=== PATIENT | female | born 1995 | race Caucasian/White ===

== ENCOUNTER 2016-06-11 10:35 | Observation (INO) | payer OTHER ==
--- NOTE | ~2016-06-11 | HP ---
Unit #: [id number] #: [id number] Patient: JOSEPH SALAS [id number] [address] [place], [place] [address] [id number] E MR#: [id number] NAME: JOSEPH SALAS ROOM: Age: 20 Sex: F Admission Date: 06/11/2016 : 1995 Attending Physician: Gene Campbell D.O. Primary Care Physician: No Primary Care Physician HISTORY AND PHYSICAL CHIEF COMPLAINT Chest pain. HISTORY OF PRESENT ILLNESS The patient is a 20-year-old female with no significant past medical history, who presented to the emergency department for evaluation of the above. The patient states that she started having chest pain yesterday. She states that the pain is in the mid chest. She describes it as "sharp." It is intermittent in nature. It is exacerbated by breathing. There are no alleviating factors. She denies any similar pain. She denies shortness of breath. She has not had any cough or fever. She states that she is currently menstruating. She has had some lower abdominal cramping in association with menses. She has also had nausea. No vomiting or diarrhea. In the emergency department initial pulse and blood pressure were 88 and 113/72 respectively. Hemoglobin is 5.7. Hemoccult was negative. She is being admitted to [facility] for evaluation and further treatment. PAST MEDICAL HISTORY None. PAST SURGICAL HISTORY None. SOCIAL HISTORY The patient lives with her parents. She denies tobacco or alcohol use. 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 FAMILY HISTORY Notable for both parents being healthy. ALLERGIES No known drug allergies. HOME MEDICATIONS None. REVIEW OF SYSTEMS A complete review of systems is negative except as indicated in the history of present illness. The patient states that she is sexually Unit #: [id number] #: [id number] Patient: JOSEPH SALAS active. She is not on any contraception. She states that her first period was at the age of 13 or 14. She states that she typically has regular monthly menses. They last about seven days and are heavy. She is currently on the last day of her menstrual cycle. She states that she typically changes the pad about every three hours. The patient states that she has never had a pap smear nor pelvic examination. PHYSICAL EXAMINATION GENERAL: The patient is a very pleasant female in no acute distress. She is awake and alert. VITALS: Temperature 97.6, pulse 88, respiratory rate 16, blood pressure 113/72. HEENT: The head is atraumatic. Mucous membranes are moist. NECK: Supple. Trachea midline. LUNGS: Clear to auscultation bilaterally with no increased work of breathing. HEART: Regular rate and rhythm. ABDOMEN: Soft and nontender with bowel sounds positive in all four quadrants. EXTREMITIES: Nontender with no pedal edema. NEUROLOGIC: The patient is awake and alert. She follows commands. PSYCHIATRIC: Mood and affect are normal. The patient is cooperative. SKIN: Skin of examined areas is warm and dry. DIAGNOSTIC STUDIES LABORATORY: CBC notable for hemoglobin 5.7, hematocrit 21.1, MCV 54.1, RDW 20.2, troponin less than 0.05, INR 1, d-dimer 245. CMP is essentially normal. CARDIOVASCULAR: EKG shows normal sinus rhythm with a rate of 78 beats per minute. ASSESSMENT The patient is a 20-year-old female with 1. Symptomatic anemia. The patient's hemoglobin is 5.7 with no baseline for comparison. The patient denies ever being told that she is anemic. 2. Menorrhagia. PLAN 1. Admit to intermediate level for observation. 2. Regular diet. 3. Transfuse two units of packed red blood cells now. 4. Hemoglobin and hematocrit one hour after transfusion and q.6 h. 5. Iron studies, B12 and folate. 6. Transvaginal ultrasound for further evaluation of menorrhagia. 7. Serial cardiac enzymes. 8. SCDs for DVT prophylaxis. 9. Repeat labs in the morning. 10. The patient will need outpatient [employer] followup. Dictated by Marilyn Shell M.D. Unit #: [id number] #: [id number] Patient: JOSUE,EH TH SELVIN AW/gz TD: 06/11/2016 12:09 JOB #: [id number] HISTORY AND PHYSICAL Page 1 of 1 X Marilyn Shell MD HISTORY AND PHYSICAL
--- NOTE | ~2016-06-11 | US134 ---
[facility] A Service of [facility] & [facility] RADIOLOGY TEXT RESULTS PATIENT: JOSEPH SALAS LOCATION: [facility] 320-01 : [birth year] UNIT #: [id number] AGE: [address]: Saad Boyd MD SEX: F ORDER DR: [id number] [facility] [address] [facility] [facility] [place], [place] [address] [id number] I MR#: [id number] Acc #: [id number] NAME: JOSEPH SALAS : 1995 SEX: F STUDY DATE/TIME: 06/11/2016 15:41 UNIT: [address] ROOM: [facility] STUDY DESCRIPTION: US Transvaginal Attending Physician: Marilyn Shell M.D. Ordering Physician: Marilyn Shell M.D. Primary Care Physician: Primary Care Physician No MEDICAL IMAGING REPORT This report is preliminary unless electronic signature is present EXAM Transvaginal pelvic ultrasound DATE 06/11/2016 HISTORY 20-year-old female with pelvic pain for 1 day. AB 0. Currently on menstrual cycle, first day of menstrual cycle 05/26/2016. FINDINGS Transvaginal imaging was performed. The uterus measures approximately 5.3 x 2.4 x 4.3 cm. Fluid is seen within the endometrial canal. Endometrial bilayer exclusive of the fluid, measures only about 2 mm thickness. There is echogenic material within the lower two-thirds of the endometrial canal which could represent blood products in this patient with history of current menstruation. No myometrial abnormalities identified. Right ovary measures 3.6 x 1.2 x 2.9 cm and contains multiple peripheral follicles, 2 of the dominant measuring about 6-7 mm. The left ovary measures 2.4 x 1.6 x 2.5 cm, contains peripheral follicles, largest measuring up to 1 cm. Both ovaries demonstrate normal color and spectral Doppler flow. There is a small quantity of free fluid in the right adnexal region. IMPRESSION 1. Simple fluid and echogenic material is demonstrated within the mildly distended endometrial canal, it may represent blood products related to the patient's history of current menstruation. 2. Endometrial bilayer is thin, measuring only 2 mm, which is not unexpected given the patient's documented menstrual phase of the menstrual cycle. 3. No myometrial abnormalities identified. 4. Normal appearance of both ovaries. A dominant follicle or cyst in [facility] A Service of [facility] RADIOLOGY TEXT RESULTS PATIENT: JOSEPH SALAS LOCATION: [facility] 320-01 : [birth year] UNIT #: [id number] AGE: [address]: Saad Boyd MD SEX: F ORDER DR: the left ovary measures 1 cm. 5. Trace free fluid is demonstrated in the right adnexal region. 6. Normal flow to each ovary. Dictated by... Sruthi Min M.D. THIS IS AN ELECTRONICALLY VERIFIED REPORT Sruthi Min M.D. at 06/13/2016 12:05 AM [facility]/charlie TD: 06/11/2016 18:15 JOB #: [id number] MEDICAL IMAGING REPORT Page 1 of 1 COPY
--- NOTE | ~2016-06-11 | DS ---
Unit #: [id number] #: [id number] Patient: JOSEPH SALAS [id number] [address] [place], [place] [address] [id number] I MR#: [id number] NAME: JOSEPH SALAS ROOM: 320 Age: 20 Sex: F Admission Date: 06/11/2016 : 1995 Discharge Date: 06/12/2016 Attending Physician: Saad Boyd M.D. Primary Care Physician: No Primary Care Physician DISCHARGE SUMMARY DISCHARGE DIAGNOSES 1. Symptomatic iron-deficiency anemia. 2. Menorrhagia. DIAGNOSTIC DATA IMAGING: Chest x-ray, 06/11/2016, findings of heart size is upper limits normal, but otherwise negative. No consolidation or effusion or pneumothorax or suspicious nodule, and the bony structures are normal. Transvaginal and pelvis ultrasound, 06/11/2016, simple fluid and echogenic material is demonstrated within the mildly distended endometrial canal, it may represent blood products related to the patient's history of current menstruation. Endometrial bilayer is thin, measuring only 2 mm, which is not unexpected given the patient's documented menstrual phase of the menstrual cycle. No myometrial abnormalities identified. Normal appearance of both ovaries. A dominant follicle or cyst in the left ovary measures 1 cm. Trace free fluid is demonstrated in the right adnexal region. Normal flow to each ovary. LABORATORY: A BMP is grossly normal and all within normal limits. Iron studies are iron 9, iron binding capacity is 593, trans saturation is 2, B12 of 560, folate 15.1, ferritin 1, transferrin is 424. CBC is WBC of 6.6, RBC 4.56, hemoglobin 8.2, hematocrit of 28.1, MCV 61.6, MCH of 18.1, MCHC 29.3, RDW of 29.3, platelets 233, MPV 8.8. HOSPITAL COURSE The patient is a 20-year-old female with no past medical history. She tells me that she has had a longstanding history of menorrhagia with heavy menstruation of 7 days, but she tells me in the past year that has reduced to three to four days of heavy menses. She presented to the emergency department due to symptoms of chest pain. She says that the pain is in the chest, describes it as sharp, it is intermittent in nature and is exacerbated with breathing. Of note is the fact that she denies any similar pain in the past. She denies any shortness of breath, denies cough, fever or cold. She states that she is currently menstruating. She has had some lower abdominal cramping as well as back pain associated with her normal menses. She also had some nausea, no vomiting or diarrhea. In the emergency department her hemoglobin was found to be 5.7. She denies any other overt signs of bleeding. She was admitted due to symptomatic iron deficiency anemia with hemoglobin 5.7. She received 2 units of blood transfusion. A transvaginal ultrasound was done with the impression stated above. At the time of evaluation, the patient tells me that all of her symptoms are relieved. She decided to go home. She has Unit #: [id number] #: [id number] Patient: JOSEPH SALAS never seen an gold reclaimer or a pay clerk. She does have insurance but has never actually seen a primary care physician. I have encouraged the patient to see an gold reclaimer or pay clerk so that she could be managed with oral contraceptives for her menorrhagia. She voiced understanding. I have discussed with the patient that contraceptive does not protect against any STDs. She voiced understanding and I have informed her that if she chooses to become active and to prevent an STD she would have to use a barrier form of contraception. She voiced understanding. At this time she is ready to be discharged home in stable condition. Recommending iron sulfate 100 mg orally daily, stool softener along with it 1 tablet orally daily. ADDENDUM DISCHARGE MEDICATIONS Prescription for Loestrin 24 with 1 additional refill. FOLLOWUP Have asked the patient to follow up with Dr. Glenys Morrison, for further menorrhagia workup. Dictated by... Flash Haro PA-C for Nitesh Saldaña TD: 06/12/2016 15:26 JOB #: [id number] Dictated by... Flash Haro PA-C for Nitesh Saldaña TD: 06/12/2016 15:53 JOB #: [id number] DISCHARGE SUMMARY Page 1 of 1 X X DISCHARGE SUMMARY
--- NOTE | ~2016-06-11 | CR72 ---
[facility] A Service of [facility] & [facility] RADIOLOGY TEXT RESULTS PATIENT: JOSEPH SALAS LOCATION: [facility] 320-01 : [birth year] UNIT #: [id number] AGE: [address]: Marilyn Shell MD SEX: F ORDER DR: [id number] [facility] [address] [place], [place] [address] [id number] I MR#: [id number] Acc #: [id number] NAME: JOSEPH SALAS : 1995 SEX: F STUDY DATE/TIME: 06/11/2016 10:22 UNIT: CEDOF ROOM: 33364 STUDY DESCRIPTION: CR Chest Single View Portable Attending Physician: Marilyn Shell M.D. Ordering Physician: Gene Campbell D.O. Primary Care Physician: No Primary Care Physician MEDICAL IMAGING REPORT This report is preliminary unless electronic signature is present EXAM Portable chest 1-view 06/11/2016 HISTORY Chest pain since yesterday. COMPARISON None FINDINGS The heart size is upper limits normal, but otherwise negative. No consolidation or effusion or pneumothorax or suspicious nodule, and the bony structures are normal. Dictated by... Amadeo Nice M.D. THIS IS AN ELECTRONICALLY VERIFIED REPORT Amadeo Nice M.D. at 06/11/2016 3:50 PM TEV/apolinar TD: 06/11/2016 12:45 JOB #: [id number] MEDICAL IMAGING REPORT Page 1 of 1 COPY
--- NOTE | ~2016-06-11 | EKG ---
PATIENT: JOSUE UNIT #: [id number] Ventricular Rate: 78 BPM Atrial Rate: 78 BPM P-R Interval: 146 ms QRS Duration: 78 ms Q-T Interval: 406 ms QTC Calculation(Bezet): 462 ms P Platter: 39 degrees Calculated R Platter: 57 degrees Calculated T Platter: 35 degrees Diagnosis Line: Normal sinus rhythm Diagnosis Line: Nonspecific T wave abnormality anteriorly Diagnosis Line: Abnormal ECG Diagnosis Line: No previous ECGs available Diagnosis Line: Confirmed by DYAN MAHMOOD MD ([id number]) on Diagnosis Line: 06/12/2016 11:03:29 PM INTERPRETING MD: ISIDRO
[2016-06-11 10:45] LABS: BASOPHIL% 0.7 % (0-2.5); EOSINOPHIL# 0.1 X10e3 (0-0.7); EOSINOPHIL% 1.2 % (0.0-7.0); HEMATOCRIT 21.1 % (35.0-45.0); LYMPHOCYTE# 1.7 X10e3 (1.0-3.5); LYMPHOCYTE% 34.3 % (17.0-45.0); MEAN CELL VOLUME 54.1 FL (83-96); MEAN CORPUSCULAR HEMOGLOBIN 14.6 PG (28-34); MEAN CORPUSCULAR HGB CONC 26.9 g/dL (30-36); MEAN PLATELET VOLUME 8.3 FL (6.5-11.5); MONOCYTE# 0.4 X10e3 (0-1.0); MONOCYTE% 8.1 % (3.0-12.0); NEUTROPHIL# 2.7 X10e3 (1.5-7.1); NEUTROPHIL% 55.7 % (40-75); PLATELET COUNT 263 X10e3 (140-420); RED CELL DISTRIBUTION WIDTH 20.2 % (11.0-15.5); WHITE BLOOD COUNT 4.9 X10e3 (4.0-10.5)
[2016-06-11 10:53] LABS: POC - CKMB <1.0 ng/mL (0.0-7.9); POC - TROPONIN <0.05 ng/mL (<=0.05)
[2016-06-11 10:55] LABS: DIFF IND YES; HEMOGLOBIN 5.7 gm/dL (12.0-16.0)
[2016-06-11 10:56] LABS: PARTIAL THROMBOPLASTIN TIME 25.4 SECONDS (23.5-31.3); PROTHROMBIN TIME (PATIENT) 10.2 SECONDS (9.6-11.5)
[2016-06-11 11:04] LABS: ANISOCYTOSIS MOD; PLATELET ESTIMATE NORMAL (NORMAL)
[2016-06-11 11:06] LABS: HYPOCHROMIA MOD; MICROCYTOSIS MOD; POIKILOCYTOSIS MOD
[2016-06-11 11:26] LABS: ALBUMIN SERUM 4.3 g/dL (3.5-5.0); ALKALINE PHOSPHATASE 66 U/L (32-92); ALT (SGPT) 11 U/L (8-29); AST (SGOT) 17 U/L (14-37); BILIRUBIN,TOTAL 0.5 mg/dL (0.2-2.0); BLOOD UREA NITROGEN 10 mg/dL (9-23); CALCIUM SERUM 9.1 mg/dL (8.4-10.2); CARBON DIOXIDE 25 mmol/L (22-31); CHLORIDE 105 mmol/L (100-111); CREATININE SERUM 0.4 mg/dL (0.6-1.4); GLUCOSE FASTING 94 mg/dL (70-110); POTASSIUM 4.2 mmol/L (3.5-5.1); PROTEIN TOTAL SERUM 7.9 g/dL (6.0-8.3); SODIUM 137 mmol/L (135-145)
[2016-06-11 11:29] LABS: BILIRUBIN, DIRECT <0.1 mg/dL (0.0-0.2); BILIRUBIN,INDIRECT 0.4 mg/dL (0.0-0.9)
[2016-06-11] MEDS ORDERED: NO MEDICATIONS (12:03)
[2016-06-11 12:10] LABS: POC - CKMB <1.0 ng/mL (0.0-7.9); POC - TROPONIN <0.05 ng/mL (<=0.05)
[2016-06-11 12:56] LABS: URINE SOURCE CLEAN CATCH
[2016-06-11 13:06] LABS: FOLATE (FOLIC ACID) 15.1 ng/mL (>5.8)
[2016-06-11 13:12] LABS: URINE APPEARANCE CLEAR; URINE BILIRUBIN NEG (NEG); URINE BLOOD 2+ (NEG); URINE COLOR YELLOW; URINE GLUCOSE NEG (NEG); URINE KETONE NEG (NEG); URINE LEUKOCYTE ESTERASE NEG (NEG); URINE NITRATE NEG (NEG); URINE PROTEIN TRACE (NEG); URINE SPECIFIC GRAVITY 1.022 (1.003-1.035)
[2016-06-11 13:14] LABS: CULTURE INDICATED? YES; URBCS1 AUWI 0-2 /[HPF] (0-2); URINE BACTERIA AUWI 1+ (NEGATIVE); URINE SQUAMOUS EPITHELIAL CELL OCC /[HPF]
[2016-06-11 17:19] LABS: CK TOTAL 38 IU/L (26-140)
[2016-06-11 19:52] LABS: HEMATOCRIT 28.1 % (35.0-45.0)
[2016-06-11 19:55] LABS: HEMOGLOBIN 8.5 gm/dL (12.0-16.0)
[2016-06-12 00:05] LABS: CK TOTAL 59 IU/L (26-140)
[2016-06-12 05:22] LABS: BASOPHIL% 0.7 % (0-2.5); EOSINOPHIL# 0.1 X10e3 (0-0.7); EOSINOPHIL% 1.2 % (0.0-7.0); HEMATOCRIT 28.1 % (35.0-45.0); HEMOGLOBIN 8.2 gm/dL (12.0-16.0); LYMPHOCYTE# 1.5 X10e3 (1.0-3.5); LYMPHOCYTE% 22.5 % (17.0-45.0); MEAN CORPUSCULAR HEMOGLOBIN 18.1 PG (28-34); MEAN CORPUSCULAR HGB CONC 29.3 g/dL (30-36); MEAN PLATELET VOLUME 8.8 FL (6.5-11.5); MONOCYTE# 0.6 X10e3 (0-1.0); MONOCYTE% 8.9 % (3.0-12.0); NEUTROPHIL# 4.4 X10e3 (1.5-7.1); NEUTROPHIL% 66.7 % (40-75); PLATELET COUNT 243 X10e3 (140-420); RED BLOOD COUNT 4.56 X10e (3.90-5.30); RED CELL DISTRIBUTION WIDTH 29.3 % (11.0-15.5); WHITE BLOOD COUNT 6.6 X10e3 (4.0-10.5)
[2016-06-12 05:24] LABS: DIFF IND NO; MEAN CELL VOLUME 61.6 FL (83-96)
[2016-06-12 06:26] LABS: ALBUMIN SERUM 3.9 g/dL (3.5-5.0); BILIRUBIN,TOTAL 0.5 mg/dL (0.2-2.0); BUN/CREATININE RATIO 26.66; CALCIUM SERUM 8.8 mg/dL (8.4-10.2); CREATININE SERUM 0.6 mg/dL (0.6-1.4); GLOM FILT RATE Estimated 132.1 mL/min (>60); POTASSIUM 4.5 mmol/L (3.5-5.1); PROTEIN TOTAL SERUM 6.9 g/dL (6.0-8.3)
[2016-06-12] MEDS ORDERED: IRON134 MG PO (11:17)
[2016-06-12] MEDS ORDERED: STOOL SOFTENER1 EAC1 PO (11:19)
[2016-06-12] MEDS ORDERED: LOESTRIN 21 1-1 EACH PO (11:22)
== END 2016-06-12 12:56 | disposition home or self-care (01) ==
LOC: CED 10:35 → CEDOF 11:30 → C3A PCU 13:48
PROVIDERS: Emergency Medicine; Family Medicine
DX: D50.9 Iron deficiency anemia, unspecified (principal); N92.0 Excessive and frequent menstruation with regular cycle
CPT/HCPCS: 36415; 36430; 71010; 76830; 80048; 80053; 80076; 81003; 82550; 82553; 82607; 82728; 82746; 83540; 83550; 84484; 84703; 85014; 85018; 85025; 85379; 85610; 85730; 86850; 86900; 86901; 86923; 87086; 93005; 96374; 99285; G0378; J1885; P9016

== ENCOUNTER 2016-08-10 10:03 | Emergency (ER) | payer OTHER ==
--- NOTE | ~2016-08-10 | US85 ---
[facility] A Service of [facility] & [facility] RADIOLOGY TEXT RESULTS PATIENT: JOSEPH SALAS LOCATION: [facility] : 96 UNIT #: [id number] AGE: [address]: Vannesa Machado APRN SEX: F ORDER DR: [id number] [facility] [address] [place], [place] [address] [id number] E MR#: [id number] Acc #: [id number] NAME: JOSEPH SALAS : 1995 SEX: F STUDY DATE/TIME: 08/10/2016 10:53 UNIT: KT ROOM: STUDY DESCRIPTION: Mysterio [employer] Stdy Attending Physician: Vannesa Machado A.P.R.N. Ordering Physician: [facility] Primary Care Physician: No Primary Care Physician MEDICAL IMAGING REPORT This report is preliminary unless electronic signature is present EXAM Left lower extremity venous ultrasound HISTORY Left leg pain 3 days duration. FINDINGS Real-time ultrasonography left lower extremity venous structures performed. Bauer-scale, color Doppler and Doppler pulse-wave interrogation utilized. The left common femoral vein, femoral vein, profunda femoris vein, popliteal vein, posterior tibial, peroneal, anterior tibial veins are patent with normal compressibility where anatomically possible and normal color Doppler interrogation demonstrating [id number] flow. The left great saphenous vein is patent. There is no evidence of left lower extremity deep or superficial venous thrombosis. In the left anterior thigh at location of pain indicated by patient there is a heterogeneous ovoid structure measuring at least 5 cm in greatest dimension. On some images it appears to have relatively well-circumscribed margins. It is poorly evaluated overall on this image. On some color Doppler images it appears to have some internal vascular flow. It is of mixed echogenicity. The appearance is nonspecific. Solid neoplastic mass is a consideration. In the appropriate clinical context, markedly complicated fluid or evolving hematoma might be considered. Please correlate with history and clinical examination. In the absence of clear etiology, further evaluation with MRI or CT would be recommended. IMPRESSION 1. Abnormal examination. No left lower extremity deep or superficial venous thrombosis seen at time of this examination. 2. In the anterior left thigh in area of pain described by patient there is a heterogeneous mixed density mass lesion measuring up to at least 5 cm in diameter. Incompletely evaluated on this examination. It is of mixed echotexture but has an appearance suggesting solid mass. [facility] A Service of [facility] RADIOLOGY TEXT RESULTS PATIENT: JOSEPH SALAS LOCATION: [facility] : [birth year] UNIT #: [id number] AGE: [address]: Vannesa Machado APRN SEX: F ORDER DR: Neoplastic mass is in differential diagnosis. On some images there is a suggestion of internal vascular flow. In the appropriate clinical context, highly complicated fluid collection or evolving hematoma might be considered. In the absence of clear known etiology, further characterization with MRI or CT is recommended. Dictated by... Eliot Rodriguez M.D. THIS IS AN ELECTRONICALLY VERIFIED REPORT Eliot Rodriguez M.D. at 08/11/2016 5:40 PM Meaghan TD: 08/10/2016 16:37 JOB #: [id number] MEDICAL IMAGING REPORT Page 1 of 1 COPY
--- NOTE | ~2016-08-10 | CR106 ---
[facility] A Service of [facility] & [facility] RADIOLOGY TEXT RESULTS PATIENT: JOSEPH SALAS LOCATION: [facility] : [birth year] UNIT #: [id number] AGE: [address]: Vannesa Machado APRN SEX: F ORDER DR: [id number] [facility] [address] [place], [place] [address] [id number] E MR#: [id number] Acc #: [id number] NAME: JOSEPH SALAS : 1995 SEX: F STUDY DATE/TIME: 08/10/2016 11:11 UNIT: [facility] ROOM: STUDY DESCRIPTION: CR Femur 2 Views Lt Attending Physician: Vannesa Machado A.P.R.N. Ordering Physician: Ed Doc Nitesh Marrero Primary Care Physician: Primary Care Physician No MEDICAL IMAGING REPORT This report is preliminary unless electronic signature is present EXAM Left femur 08/10/2016 HISTORY 21-year-old female with left mid thigh pain for 2 days. No specific injury. COMPARISON None FINDINGS 5 views of the left femur demonstrate no acute fracture or dislocation. Soft tissues are unremarkable. IMPRESSION Negative left femur. Dictated by... Gabino Mandujano M.D. THIS IS AN ELECTRONICALLY VERIFIED REPORT Gabino Mandujano M.D. at 08/10/2016 6:29 PM DENG/charlie TD: 08/10/2016 17:01 JOB #: [id number] MEDICAL IMAGING REPORT Page 1 of 1 COPY
[~2016-08-10 10:03] MED LIST: IRON134 MG PO; LOESTRIN 21 1-1 EACH PO; NO MEDICATIONS; STOOL SOFTENER1 EAC1 PO
== END 2016-08-10 12:15 | disposition home or self-care (01) ==
LOC: CED 10:03
DX: S76.912A Strain of unspecified muscles, fascia and tendons at thigh level, left thigh, initial encounter (principal); D64.9 Anemia, unspecified; X58.XXXA Exposure to other specified factors, initial encounter; Y92.9 Unspecified place or not applicable
CPT/HCPCS: 29530; 73552; 84703; 93971; 99284